=== PATIENT | male | born 1960 | race Caucasian/White ===

== ENCOUNTER → 2021-03-04 | Outpatient (CLI) | payer OTHER ==
[~2021-03-04] MED LIST: ALBU8.5H8 INH; AMLO-211 PO; ASPI-614 PO; ATOR20TA PO; BUDE8.6S NS; CETI1TAB6 PO; ESOM40CA PO; FLUO20TA25 PO; LOSA100T14 PO; OMEG300C5 PO; SALM50DI2 PO; SITA1TAB PO; TAMS0.4C2 PO; UBID100C41 PO
== END | disposition home or self-care (01) ==
LOC: CFH 09:22
PROVIDERS: ATTEND Internal Medicine Clinical Cardiac Electrophysiology
DX: I36.1 Nonrheumatic tricuspid (valve) insufficiency (principal); I47.2 Ventricular tachycardia
CPT/HCPCS: 93306; 93356